=== PATIENT | male | born 1950 | race Caucasian/White ===

== ENCOUNTER 2021-10-26 17:02 | Inpatient (IN) | payer MEDICARE ==
[2021-10-26 17:59] LABS: #Lymphocytes 1.2 thou/uL (1.20-3.40); #Monocytes 0.4 thou/uL (0.11-0.59); #Neutrophils 4.2 thou/uL (1.40-6.50); %Basophils 0.6 % (0.0-1.0); %Eosinophils 0.8 % (0.0-10.0); %Monocytes 6.1 % (0.0-10.0); %Neutrophils 72.5 % (42.0-75.0); Hemoglobin 15.3 g/dL (14.0-18.0); Mean Corpuscular HGB CONC 33.9 g/dL (32.0-36.0); Mean Corpuscular Hemoglobin 31.4 pg (27.0-31.0); Mean Corpuscular Volume 92.7 fL (78.0-98.0); Mean Platelet Volume 6.5 fL (7.4-10.4); Platelet Count 229 thou/uL (130-400); Red Blood Cell (RBC) Count 4.86 mill/uL (4.70-6.10); White Blood Cell (WBC) Count 5.8 thou/uL (4.8-10.8)
[2021-10-26 18:19] LABS: ALT (SGPT) 28 U/L (8-55); AST (SGOT) 22 U/L (5-34); Albumin 3.8 g/dL (3.4-4.8); Alkaline Phosphatase 93 U/L (40-110); Anion Gap 15 mmol/L (10-20); BUN (Urea Nitrogen) 20 mg/dL (8.4-25.7); Calc. Creatinine Clearance 0 mL/min (70-130); Calcium 8.8 mg/dL (7.8-10.44); Carbon Dioxide 23 mmol/L (23-31); Chloride 104 mmol/L (98-107); Globulin 2.8 g/dL (2.4-3.5); Glucose 145 mg/dL (83-110); Lipase 10 U/L (8-78); Potassium 3.9 mmol/L (3.5-5.1); Protein, Total 6.6 g/dL (5.8-8.1); Sodium 138 mmol/L (136-145)
[2021-10-26 18:51] LABS: CKMB 2.5 ng/mL (0-6.6)
[2021-10-26 19:52] LABS: INR-International Normal Ratio 0.9; PTT 28.8 sec (22.9-36.1); Prothrombin Time 12.7 sec (12.0-14.7)
[2021-10-26] MEDS ORDERED: Enoxaparin Sodium 100 MG/ML SYRINGE ONE (20:25)
[2021-10-26 21:25] LABS: Troponin I 0.494 ng/mL (< 0.028)
[2021-10-26] MEDS ORDERED: Morphine 2 MG/ML VIAL SLOW IVP PRN (21:34)
[2021-10-26] MEDS ORDERED: Nitroglycerin 0.4 MG TAB (25 Tab Bottle) SL PRN (21:34)
[2021-10-26] MEDS ORDERED: Lisinopril 2.5 MG TAB PO SCH (22:00)
[2021-10-26] MEDS: Atorvastatin Calcium 40 MG TAB PO SCH (22:36)
[2021-10-26] MEDS: Metoprolol Tartrate 25 MG TAB PO SCH (22:36)
[2021-10-26 22:57] LABS: Hemoglobin 14.3 g/dL (14.0-18.0); Platelet Count 212 thou/uL (130-400)
[2021-10-26] MEDS: Heparin 10,000 UNITS/ 10 ML VIAL SLOW IVP SCH (23:14)
[2021-10-26] MEDS: Heparin 25,000 units/D5W 500 ML IVPB SCH (23:15)
[2021-10-27 00:38] LABS: Critical Call Chem Troponin I RESULT DECREASING; Troponin I 0.362 ng/mL (< 0.028)
[2021-10-27 06:54] LABS: Cardiac Risk 5.4 (Less than 4.5)
[2021-10-27] MEDS: Metoprolol Tartrate 25 MG TAB PO SCH ×2 (08:06→21:39)
[2021-10-27] MEDS: Lisinopril 2.5 MG TAB PO SCH (08:06)
[2021-10-27] MEDS: Aspirin 325 mg Enteric Coated Tablet PO SCH (08:06)
[2021-10-27] MEDS ORDERED: Iopamidol 370 76% 100 ML VIAL ONE (10:05)
[2021-10-27] MEDS ORDERED: Communication Order-Pharmacy FS SCH (12:30)
[2021-10-27] MEDS ORDERED: Lidocaine 1% (PF) 30 ML VIAL ONE (16:46)
[2021-10-27] MEDS ORDERED: Fentanyl 100 MCG/2 ML VIAL ONE (17:01)
[2021-10-27] MEDS ORDERED: Midazolam HCl 2 mg/2 ml Vial ONE (17:01)
[2021-10-27] MEDS ORDERED: Atropine Sulfate 1 mg/10 ml Syringe ONE (17:14)
[2021-10-27] MEDS ORDERED: Nitroglycerin 100MG/250ML BOT 250 ML ONE (17:16)
[2021-10-27] MEDS ORDERED: Nitroglycerin 50 MG/250 ML BOT 250 ML ONE (17:16)
[2021-10-27] MEDS ORDERED: Acetaminophen/Codeine 30-300mg Tablet PO PRN ×2 (18:00)
[2021-10-27] MEDS ORDERED: Sodium Chloride 0.9% 200 ML IV PRN (18:00)
[2021-10-27] MEDS ORDERED: Nitroglycerin 0.4 MG TAB (25 Tab Bottle) SL PRN (18:00)
[2021-10-27] MEDS ORDERED: Sodium Chloride 0.9% 1,000 ML IV SCH (18:15)
[2021-10-27] MEDS ORDERED: Nitroglycerin 50 MG/250 ML BOT 250 ML IVPB SCH (18:15)
[2021-10-27] MEDS: Atorvastatin Calcium 40 MG TAB PO SCH (21:39)
[2021-10-28] MEDS: Heparin 10,000 UNITS/ 10 ML VIAL SLOW IVP SCH ×3 (01:58→21:24)
[2021-10-28] MEDS: Heparin 25,000 units/D5W 500 ML IVPB SCH ×2 (02:03→21:49)
[2021-10-28 03:50] LABS: Hemoglobin A1c 7.7 % (4.0-6.0)
[2021-10-28] MEDS: Famotidine 20 MG TAB PO SCH ×2 (08:20→21:24)
[2021-10-28] MEDS: Lisinopril 2.5 MG TAB PO SCH (08:20)
[2021-10-28] MEDS: Aspirin 325 mg Enteric Coated Tablet PO SCH (08:20)
[2021-10-28] MEDS: Metoprolol Tartrate 25 MG TAB PO SCH (08:23)
[2021-10-28] MEDS ORDERED: Electrolyte Replacement Protocol 1 EACH FS SCH (15:15)
[2021-10-28] MEDS: Atorvastatin Calcium 40 MG TAB PO SCH (21:24)
[2021-10-29] MEDS: Metoprolol Tartrate 25 MG TAB PO SCH ×3 (00:54→21:15)
[2021-10-29] MEDS ORDERED: Heparin 5,000 UNITS/ML VIAL ONE (00:55)
[2021-10-29] MEDS ORDERED: Neomycin-Polymyxin 1 ML AMP ONE (01:38)
[2021-10-29 04:51] LABS: #Basophils 0.1 thou/uL (0.0-0.2); #Eosinphils 0.2 thou/uL (0.0-0.7); #Lymphocytes 1.5 thou/uL (1.20-3.40); #Monocytes 0.4 thou/uL (0.11-0.59); #Neutrophils 3.7 thou/uL (1.40-6.50); %Basophils 0.9 % (0.0-1.0); %Eosinophils 2.7 % (0.0-10.0); %Lymphocytes 25.6 % (21.0-51.0); %Neutrophils 63.9 % (42.0-75.0); Hemoglobin 13.7 g/dL (14.0-18.0); Mean Corpuscular HGB CONC 33.3 g/dL (32.0-36.0); Mean Corpuscular Hemoglobin 31.4 pg (27.0-31.0); Mean Corpuscular Volume 94.3 fL (78.0-98.0); Mean Platelet Volume 7.4 fL (7.4-10.4); Platelet Count 175 thou/uL (130-400); RBC Distribution Width 11.7 % (11.5-14.5); Red Blood Cell (RBC) Count 4.35 mill/uL (4.70-6.10); White Blood Cell (WBC) Count 5.7 thou/uL (4.8-10.8)
[2021-10-29 05:08] LABS: PTT 157.5 sec (22.9-36.1)
[2021-10-29 05:09] LABS: Anion Gap 12 mmol/L (10-20); BUN (Urea Nitrogen) 12 mg/dL (8.4-25.7); Calc. Creatinine Clearance 106 mL/min (70-130); Calcium 8.3 mg/dL (7.8-10.44); Carbon Dioxide 25 mmol/L (23-31); Chloride 105 mmol/L (98-107); Glucose 127 mg/dL (83-110); Magnesium 2.1 mg/dL (1.6-2.6); Potassium 3.6 mmol/L (3.5-5.1); Sodium 138 mmol/L (136-145)
[2021-10-29] MEDS ORDERED: Potassium Chloride 20 MEQ TAB PO SCH (08:00)
[2021-10-29] MEDS: Lisinopril 2.5 MG TAB PO SCH (08:19)
[2021-10-29] MEDS: Famotidine 20 MG TAB PO SCH ×2 (08:20→21:20)
[2021-10-29] MEDS: Aspirin 325 mg Enteric Coated Tablet PO SCH (08:20)
[2021-10-29] MEDS ORDERED: Communication Order-Pharmacy FS SCH (10:02)
[2021-10-29] MEDS: Atorvastatin Calcium 40 MG TAB PO SCH (21:20)
[2021-10-30 04:22] LABS: #Basophils 0.1 thou/uL (0.0-0.2); #Eosinphils 0.2 thou/uL (0.0-0.7); #Lymphocytes 1.3 thou/uL (1.20-3.40); #Monocytes 0.5 thou/uL (0.11-0.59); #Neutrophils 4.5 thou/uL (1.40-6.50); %Basophils 0.9 % (0.0-1.0); %Eosinophils 2.5 % (0.0-10.0); %Lymphocytes 20.2 % (21.0-51.0); %Monocytes 7.6 % (0.0-10.0); %Neutrophils 68.8 % (42.0-75.0); Hemoglobin 13.1 g/dL (14.0-18.0); Mean Corpuscular HGB CONC 33.7 g/dL (32.0-36.0); Mean Corpuscular Hemoglobin 31.3 pg (27.0-31.0); Mean Corpuscular Volume 92.8 fL (78.0-98.0); Mean Platelet Volume 7.2 fL (7.4-10.4); Platelet Count 180 thou/uL (130-400); RBC Distribution Width 11.9 % (11.5-14.5); Red Blood Cell (RBC) Count 4.19 mill/uL (4.70-6.10); White Blood Cell (WBC) Count 6.5 thou/uL (4.8-10.8)
[2021-10-30 04:31] LABS: Anion Gap 12 mmol/L (10-20); BUN (Urea Nitrogen) 13 mg/dL (8.4-25.7); Calc. Creatinine Clearance 111 mL/min (70-130); Calcium 8.8 mg/dL (7.8-10.44); Carbon Dioxide 24 mmol/L (23-31); Chloride 106 mmol/L (98-107); Glucose 129 mg/dL (83-110); Potassium 3.8 mmol/L (3.5-5.1); Sodium 138 mmol/L (136-145)
[2021-10-30 05:26] VITALS: BMI 30.7
[2021-10-30] MEDS: Heparin 10,000 UNITS/ 10 ML VIAL SLOW IVP SCH (06:28)
[2021-10-30] MEDS: Metoprolol Tartrate 25 MG TAB PO SCH (09:00)
[2021-10-30] MEDS: Famotidine 20 MG TAB PO SCH (09:12)
[2021-10-30] MEDS: Lisinopril 2.5 MG TAB PO SCH (09:12)
[2021-10-30] MEDS: Aspirin 325 mg Enteric Coated Tablet PO SCH (09:13)
[2021-10-30] MEDS ORDERED: Midazolam HCl 5 mg/5 ml Vial ONE (10:08)
[2021-10-30] MEDS ORDERED: Norepinephrine 4 MG/4 ML VIAL ONE (10:09)
[2021-10-30] MEDS ORDERED: fentaNYL Citrate/PF 100 MCG/2 ML SYRINGE ONE (10:09)
[2021-10-30] MEDS ORDERED: Dexmedetomidine 200 MCG/2 ML VIAL ONE (10:09)
[2021-10-30] MEDS ORDERED: PHENYLEPHRINE-NS 100 MCG/ML 10 ML SYRINGE ONE (11:02)
[2021-10-30] MEDS ORDERED: Albumin 5% 500 ML ONE (11:02)
[2021-10-30] MEDS ORDERED: Heparin 10,000 UNITS/1 ML VIAL 30,000 UNITS in Sodium Chloride 0.9% 1,000 ML FS SCH (11:30)
[2021-10-30] MEDS ORDERED: CEFAZOLIN 1 GM VIAL SLOW IVP SCH (11:30)
[2021-10-30] MEDS ORDERED: PROPOFOL 200 MG/20 ML VIAL ONE (12:30)
[2021-10-30] MEDS ORDERED: Sodium Bicarb 50 MEQ/50 ML Abboject 8.4% SYRINGE ONE (12:30)
[2021-10-30] MEDS ORDERED: Protamine Sulfate 250 MG/25 ML VIAL ONE (12:30)
[2021-10-30] MEDS ORDERED: Rocuronium Bromide 10 MG/ML (10ML VIAL) ONE (12:30)
[2021-10-30] MEDS ORDERED: Vecuronium 10 MG VIAL ONE (12:30)
[2021-10-30] MEDS ORDERED: Cardioplegic Soln 1,000 ML BAG ONE (12:30)
[2021-10-30] MEDS ORDERED: Aminocaproic Acid 5 GM/20 ML VIAL ONE (12:30)
[2021-10-30] MEDS ORDERED: Heparin 5,000 UNITS/ML VIAL ONE (12:30)
[2021-10-30] MEDS ORDERED: Calcium Chloride 1 GM/10 ML Abboject SYRINGE ONE (12:30)
[2021-10-30] MEDS ORDERED: Lidocaine 1% PF 5 ML VIAL ONE (12:30)
[2021-10-30] MEDS ORDERED: Heparin 30,000 units/30 ml VIAL ONE (12:30)
[2021-10-30] MEDS ORDERED: Papaverine 60 MG/2 ML VIAL ONE (12:30)
[2021-10-30] MEDS ORDERED: Thrombin 5000 UNITS/5 ML VIAL ONE (12:30)
[2021-10-30] MEDS ORDERED: Mannitol 12.5 GM/50 ML ONE (12:30)
[2021-10-30] MEDS ORDERED: Lidocaine 2% PF 100 mg/5 ml Syringe ONE (12:30)
[2021-10-30] MEDS ORDERED: Magnesium Sulfate 1 GM/2 ML VIAL ONE (12:30)
[2021-10-30] MEDS ORDERED: Midazolam HCl 2 mg/2 ml Vial ONE (15:22)
[2021-10-30] MEDS ORDERED: Guaifenesin DM 100-10/5 ML UDCUP PO PRN (15:43)
[2021-10-30] MEDS ORDERED: Mag-Al 1200 mg/1200 mg/30 ML UDCUP PO PRN (15:43)
[2021-10-30] MEDS ORDERED: DOPamine 400 MG/D5W 250 ML 250 ML IVPB PRN (15:43)
[2021-10-30] MEDS ORDERED: Nitroglycerin 50 MG/250 ML BOT 250 ML IVPB PRN (15:43)
[2021-10-30] MEDS ORDERED: Post-Op Insulin Drip Protocol IVPB ONE (15:43)
[2021-10-30] MEDS ORDERED: Morphine 2 MG/ML VIAL SLOW IVP PRN (15:43)
[2021-10-30] MEDS ORDERED: niCARdipine 25 MG in Sodium Chloride 0.9% 250 ML 250 ML IVPB PRN (15:43)
[2021-10-30] MEDS ORDERED: Ondansetron PF 4 MG/2 ML Vial IVP PRN (15:43)
[2021-10-30] MEDS ORDERED: Promethazine HCl 25 MG/ML VIAL IM PRN (15:43)
[2021-10-30] MEDS ORDERED: Bisacodyl 5 MG TAB PO PRN (15:43)
[2021-10-30] MEDS ORDERED: Fentanyl 100 MCG/2 ML VIAL SLOW IVP PRN ×2 (15:43)
[2021-10-30] MEDS ORDERED: Acetaminophen 325 MG TAB PO PRN (15:43)
[2021-10-30] MEDS ORDERED: HYDROcodone/Acetaminophen 5/325 mg Tablet PO PRN (15:43)
[2021-10-30] MEDS ORDERED: Hetastarch 6% 500 ML 500 ML IVPB PRN (15:43)
[2021-10-30] MEDS ORDERED: Norepinephrine 8 MG/0.9% NS 250 ML IVPB PRN (15:43)
[2021-10-30] MEDS ORDERED: hydrALAZINE 20 MG/ML VIAL SLOW IVP PRN (15:43)
[2021-10-30] MEDS ORDERED: Bisacodyl 10 MG SUPP PR PRN (15:43)
[2021-10-30 15:59] LABS: Actual Bicarbonate (HCO3a) 20.4 mEq/L (22-28); Base Excess (BEa) -3.6 mEq/L (-2.0 to +3.0); Calcium, Ionized (arterial) 1.16 mmol/L (1.12-1.30); Carboxyhemoglobin (COHb) 0.9 gm% (0.0-3.0); O2 Tension (PaO2), arterial 76.3 mmHg (> 70.0); Potassium - ABG Lab 3.91 mmol/L (3.70-5.30)
[2021-10-30 16:00] LABS: CO2 Tension 33.4 mmHg (35.0-45.0); Puncture Site Arterial Line
[2021-10-30] MEDS: Lactated Ringer's 1,000 ML IV SCH (16:00)
[2021-10-30 16:05] LABS: #Eosinphils 0.1 thou/uL (0.0-0.7); #Lymphocytes 0.6 thou/uL (1.20-3.40); #Monocytes 0.2 thou/uL (0.11-0.59); #Neutrophils 6.4 thou/uL (1.40-6.50); %Basophils 0.2 % (0.0-1.0); %Eosinophils 0.9 % (0.0-10.0); %Lymphocytes 8.6 % (21.0-51.0); %Monocytes 2.3 % (0.0-10.0); %Neutrophils 88.1 % (42.0-75.0); Hemoglobin 12.5 g/dL (14.0-18.0); Mean Corpuscular HGB CONC 33.7 g/dL (32.0-36.0); Mean Corpuscular Hemoglobin 31.6 pg (27.0-31.0); Mean Corpuscular Volume 93.8 fL (78.0-98.0); Mean Platelet Volume 7.3 fL (7.4-10.4); Platelet Count 125 thou/uL (130-400); Red Blood Cell (RBC) Count 3.96 mill/uL (4.70-6.10); White Blood Cell (WBC) Count 7.2 thou/uL (4.8-10.8)
[2021-10-30] MEDS ORDERED: Dextrose 5% in Water 1,000 ML IV PRN (16:15)
[2021-10-30] MEDS ORDERED: Dextrose 50% Abboject 50 ML SYRINGE SLOW IVP PRN (16:15)
[2021-10-30] MEDS ORDERED: HUMULIN R 100 UNITS in Sodium Chloride 0.9% 100 ML IVPB SCH (16:15)
[2021-10-30 16:17] LABS: INR-International Normal Ratio 1.2; PTT 33.7 sec (22.9-36.1); Prothrombin Time 14.9 sec (12.0-14.7)
[2021-10-30] MEDS: Insulin Regular 300 UNITS/3 ML VIAL SC PRN ×2 (16:27→20:25)
[2021-10-30 16:30] LABS: Anion Gap 13 mmol/L (10-20); BUN (Urea Nitrogen) 10 mg/dL (8.4-25.7); Calc. Creatinine Clearance 118 mL/min (70-130); Calcium 8.5 mg/dL (7.8-10.44); Carbon Dioxide 20 mmol/L (23-31); Chloride 109 mmol/L (98-107); Glucose 145 mg/dL (83-110); Potassium 3.9 mmol/L (3.5-5.1); Sodium 138 mmol/L (136-145)
[2021-10-30] MEDS: Potassium Chloride 20 MEQ/100 ML PREMIX BAG IVPB PRN (17:16)
[2021-10-30 18:04] LABS: Actual Bicarbonate (HCO3a) 19.6 mEq/L (22-28); Calcium, Ionized (arterial) 1.13 mmol/L (1.12-1.30); Carboxyhemoglobin (COHb) 0.4 gm% (0.0-3.0); Hemoglobin (Hb) 13.6 g/dL (14.0-18.0); Potassium - ABG Lab 4.65 mmol/L (3.70-5.30); pH, Arterial 7.37 (7.35-7.45)
[2021-10-30 18:05] LABS: Puncture Site LINE
[2021-10-30] MEDS ORDERED: Sodium Bicarb 50 MEQ/50 ML VIAL ONE (18:12)
[2021-10-30] MEDS ORDERED: Sodium Bicarb 50 MEQ/50 ML VIAL IVP SCH (18:15)
[2021-10-30] MEDS: Ketorolac Tromethamine 30 MG/ML VIAL IVP SCH (19:04)
[2021-10-30] MEDS: CEFAZOLIN 2 GM in Sodium Chloride 0.9% 100 ML IVPB SCH (20:23)
[2021-10-30] MEDS: Famotidine 40 MG/4 ML VIAL SLOW IVP SCH (20:25)
[2021-10-30] MEDS: Atorvastatin Calcium 20 MG TAB PO SCH (20:25)
[2021-10-30 21:55] LABS: Hemoglobin 13.2 g/dL (14.0-18.0)
[2021-10-30 22:11] LABS: Potassium 4.2 mmol/L (3.5-5.1)
[2021-10-31] MEDS: Ketorolac Tromethamine 30 MG/ML VIAL IVP SCH ×5 (00:17→23:00)
[2021-10-31] MEDS: Insulin Regular 300 UNITS/3 ML VIAL SC PRN ×4 (00:18→20:06)
[2021-10-31] MEDS: HYDROcodone/Acetaminophen 5/325 mg Tablet PO PRN ×2 (02:20→17:13)
[2021-10-31] MEDS: CEFAZOLIN 2 GM in Sodium Chloride 0.9% 100 ML IVPB SCH ×2 (04:00→11:54)
[2021-10-31] MEDS: Lactated Ringer's 1,000 ML IV SCH ×2 (04:10→18:29)
[2021-10-31 07:26] LABS: White Blood Cell (WBC) Count 11.8 thou/uL (4.8-10.8)
[2021-10-31 07:27] LABS: Hemoglobin 12.6 g/dL (14.0-18.0); Red Blood Cell (RBC) Count 4.03 mill/uL (4.70-6.10)
[2021-10-31 07:28] LABS: Mean Corpuscular HGB CONC 33.4 g/dL (32.0-36.0); Mean Corpuscular Hemoglobin 31.2 pg (27.0-31.0); Mean Corpuscular Volume 93.3 fL (78.0-98.0)
[2021-10-31 07:29] LABS: Platelet Count 163 thou/uL (130-400)
[2021-10-31 07:30] LABS: %Lymphocytes 5.8 % (21.0-51.0); %Neutrophils 87.8 % (42.0-75.0); Mean Platelet Volume 7.7 fL (7.4-10.4)
[2021-10-31 07:31] LABS: #Neutrophils 10.3 thou/uL (1.40-6.50); %Eosinophils 0.1 % (0.0-10.0); %Monocytes 6.3 % (0.0-10.0)
[2021-10-31 07:32] LABS: #Lymphocytes 0.7 thou/uL (1.20-3.40); #Monocytes 0.7 thou/uL (0.11-0.59)
[2021-10-31 07:37] LABS: Calcium 8.4 mg/dL (7.8-10.44); Chloride 105 mmol/L (98-107); Glucose 189 mg/dL (83-110); Sodium 135 mmol/L (136-145)
[2021-10-31 07:39] LABS: Anion Gap 12 mmol/L (10-20); Carbon Dioxide 22 mmol/L (23-31)
[2021-10-31 07:41] LABS: BUN (Urea Nitrogen) 13 mg/dL (8.4-25.7); Calc. Creatinine Clearance 102 mL/min (70-130)
[2021-10-31] MEDS: Famotidine 40 MG/4 ML VIAL SLOW IVP SCH (08:54)
[2021-10-31] MEDS: Potassium Chloride 20 MEQ/100 ML PREMIX BAG IVPB PRN (08:54)
[2021-10-31] MEDS ORDERED: Aspirin 325 MG TAB PO SCH (09:00)
[2021-10-31] MEDS ORDERED: Insulin Glargine 30 UNITS/0.3 ML VIAL SC PRN (16:11)
[2021-10-31] MEDS ORDERED: Losartan 25 MG TAB PO SCH (17:45)
[2021-10-31] MEDS ORDERED: Amlodipine 5 MG TAB PO SCH (17:45)
[2021-10-31] MEDS ORDERED: Mineral Oil ENEMA PR PRN (18:25)
[2021-10-31] MEDS ORDERED: Nitroglycerin 0.4 MG TAB (25 Tab Bottle) SL PRN (18:25)
[2021-10-31] MEDS ORDERED: diphenhydrAMINE 25 MG CAP PO PRN (18:25)
[2021-10-31] MEDS ORDERED: Dextrose 50% Abboject 50 ML SYRINGE SLOW IVP PRN (19:00)
[2021-10-31] MEDS ORDERED: Dextrose 5% in Water 1,000 ML IV PRN (19:00)
[2021-10-31] MEDS: Atorvastatin Calcium 20 MG TAB PO SCH (20:05)
[2021-10-31] MEDS: Famotidine 20 MG TAB PO SCH (20:06)
[2021-11-01] MEDS: Ketorolac Tromethamine 30 MG/ML VIAL IVP SCH ×3 (05:07→17:04)
[2021-11-01] MEDS: Insulin Regular 300 UNITS/3 ML VIAL SC PRN ×2 (06:35→11:57)
[2021-11-01] MEDS: Potassium Chloride 10 MEQ TAB PO SCH (08:40)
[2021-11-01] MEDS: Amlodipine 5 MG TAB PO SCH (08:40)
[2021-11-01] MEDS: Famotidine 20 MG TAB PO SCH ×2 (08:44→20:58)
[2021-11-01] MEDS: Losartan 25 MG TAB PO SCH (08:44)
[2021-11-01] MEDS: Metoprolol Tartrate 25 MG TAB PO SCH ×2 (08:44→20:58)
[2021-11-01] MEDS: Aspirin 325 mg Enteric Coated Tablet PO SCH (08:44)
[2021-11-01] MEDS: Polyethylene Glycol 3350 17 GM Packet PO SCH (08:44)
[2021-11-01] MEDS: Furosemide 40 MG TAB PO SCH (08:44)
[2021-11-01] MEDS ORDERED: HumaLOG 300 UNITS/3 ML VIAL SC PRN (16:08)
[2021-11-01] MEDS ORDERED: Dextrose 5% in Water 1,000 ML IV PRN (16:08)
[2021-11-01] MEDS ORDERED: Insulin Glargine 30 UNITS/0.3 ML VIAL SC PRN (18:56)
[2021-11-01] MEDS: Atorvastatin Calcium 20 MG TAB PO SCH (20:58)
[2021-11-02] MEDS: Ketorolac Tromethamine 30 MG/ML VIAL IVP SCH ×4 (00:41→19:14)
[2021-11-02 04:16] LABS: Hemoglobin 11.3 g/dL (14.0-18.0); Mean Corpuscular HGB CONC 33.1 g/dL (32.0-36.0); Mean Corpuscular Hemoglobin 31.7 pg (27.0-31.0); Mean Platelet Volume 7.7 fL (7.4-10.4); Platelet Count 143 thou/uL (130-400); RBC Distribution Width 11.9 % (11.5-14.5); Red Blood Cell (RBC) Count 3.55 mill/uL (4.70-6.10); White Blood Cell (WBC) Count 8.2 thou/uL (4.8-10.8)
[2021-11-02 04:24] LABS: Anion Gap 11 mmol/L (10-20); BUN (Urea Nitrogen) 19 mg/dL (8.4-25.7); Calc. Creatinine Clearance 117 mL/min (70-130); Calcium 8.1 mg/dL (7.8-10.44); Carbon Dioxide 27 mmol/L (23-31); Chloride 104 mmol/L (98-107); Glucose 107 mg/dL (83-110); Potassium 3.7 mmol/L (3.5-5.1); Sodium 138 mmol/L (136-145)
[2021-11-02] MEDS: Aspirin 325 mg Enteric Coated Tablet PO SCH (08:33)
[2021-11-02] MEDS: Potassium Chloride 10 MEQ TAB PO SCH (08:34)
[2021-11-02] MEDS: Losartan 25 MG TAB PO SCH (08:34)
[2021-11-02] MEDS: Amlodipine 5 MG TAB PO SCH (08:34)
[2021-11-02] MEDS: Metoprolol Tartrate 25 MG TAB PO SCH ×2 (08:46→20:44)
[2021-11-02] MEDS: Furosemide 40 MG TAB PO SCH (08:46)
[2021-11-02] MEDS: Famotidine 20 MG TAB PO SCH ×2 (08:46→20:44)
[2021-11-02] MEDS: Polyethylene Glycol 3350 17 GM Packet PO SCH (08:47)
[2021-11-02] MEDS: Atorvastatin Calcium 20 MG TAB PO SCH (20:44)
[2021-11-03] MEDS ORDERED: Clopidogrel Bisulfate 75 MG TAB PO SCH (09:00)
[2021-11-03 10:39] VITALS: BP 160/82; TEMP 98.7
[2021-11-03] MEDS: Losartan 25 MG TAB PO SCH (10:41)
[2021-11-03] MEDS: Furosemide 40 MG TAB PO SCH (10:41)
[2021-11-03] MEDS: Metoprolol Tartrate 25 MG TAB PO SCH (10:41)
[2021-11-03] MEDS: Potassium Chloride 10 MEQ TAB PO SCH (10:41)
[2021-11-03] MEDS: Famotidine 20 MG TAB PO SCH (10:42)
[2021-11-03] MEDS: Aspirin 325 mg Enteric Coated Tablet PO SCH (10:43)
[2021-11-03] MEDS: Polyethylene Glycol 3350 17 GM Packet PO SCH (10:48)
[2021-11-03] MEDS: Amlodipine 5 MG TAB PO SCH (10:48)
== END 2021-11-03 12:30 | disposition home or self-care (01) | DRG 234 ==
LOC: ERS 17:02 → 2NO 20:37 → SURG A 10-27 17:31 → CCU 10-27 20:31 → IMCU/EMU 11-01 06:14 → 2NO 11-02 17:09
PROVIDERS: ADMIT Thoracic Surgery (Cardiothoracic Vascular Surgery); ATTEND Internal Medicine
PROC: 02100Z9 Bypass Coronary Artery, One Artery from Left Internal Mammary, Open Approach (ICD-10-PCS; principal; 2021-10-30)
PROC: 021209W Bypass Coronary Artery, Three Arteries from Aorta with Autologous Venous Tissue, Open Approach (ICD-10-PCS; 2021-10-30)
PROC: 06BQ4ZZ Excision of Left Saphenous Vein, Percutaneous Endoscopic Approach (ICD-10-PCS; 2021-10-30)
PROC: 5A1221Z Performance of Cardiac Output, Continuous (ICD-10-PCS; 2021-10-30)
PROC: B2111ZZ Fluoroscopy of Multiple Coronary Arteries using Low Osmolar Contrast (ICD-10-PCS; 2021-10-30)
DX: I21.4 Non-ST elevation (NSTEMI) myocardial infarction (principal); Z20.822 Contact with and (suspected) exposure to COVID-19; F17.210 Nicotine dependence, cigarettes, uncomplicated; I10 Essential (primary) hypertension; I25.10 Atherosclerotic heart disease of native coronary artery without angina pectoris; E11.65 Type 2 diabetes mellitus with hyperglycemia; E87.6 Hypokalemia
CPT/HCPCS: 36415; 36416; 36430; 71045; 80048; 80053; 80061; 82553; 82805; 83036; 83690; 83735; 84443; 84484; 85025; 85027; 85347; 85610; 85730; 86850; 86900; 86901; 93005; 93010; 93306; 93454; 93798; 94002; 96372; 97139; 99152; C1751; J0360; J0461; J0690; J1644; J1650; J1815; J1885; J2001; J2150; J2250; J2270; J2440; J2550; J2704; J2720; J3010; J3370; J3475; J3480; J3490; J7050; J7120; P9045; Q9967; S0017; U0003; U0005